=== PATIENT | female | born 1950 | race Caucasian/White ===

== ENCOUNTER → 2021-09-03 | Outpatient (CLI) | payer BC, OTHER ==
[~2021-09-03] MED LIST: ASPIRIN81 MG PO; CARAFATE1 GM PO; DULCOLAX5 MG PO; GABAPENTIN300 MG PO; HYDROCHLOROTHIA25 MG PO; LEVOTHYROXINE100 MCG PO; MONTELUKAST SOD10 MG PO; OMEPRAZOLE40 MG PO; TOPROL XL 25 MG25 MG PO
== END ==
LOC: EMI 09-02 10:45
DX: R41.9 Unspecified symptoms and signs involving cognitive functions and awareness (principal); G31.9 Degenerative disease of nervous system, unspecified; R93.0 Abnormal findings on diagnostic imaging of skull and head, not elsewhere classified; H70.92 Unspecified mastoiditis, left ear
CPT/HCPCS: 70551

== ENCOUNTER 2021-12-03 09:43 | Emergency (ER) | payer BC, OTHER, MEDICAID ==
[2021-12-03 11:08] LABS: RED BLOOD COUNT 5.13 M/UL (4.00-5.10); WHITE BLOOD COUNT 6.4 K/UL (4.5-11.0)
[2021-12-03 11:55] LABS: BUN/CREATININE RATIO 18 (0-10)
[2021-12-03] MEDS ORDERED: AMOX TR-K CLV1 EAC4 PO (14:32)
[2021-12-03] MEDS ORDERED: ZOFRAN ODT 4 MG4 MG PO (14:32)
== END 2021-12-03 14:45 | disposition home or self-care (01) ==
LOC: ER1 09:43
PROVIDERS: Family Medicine
DX: H92.01 Otalgia, right ear (principal); E87.6 Hypokalemia; J32.9 Chronic sinusitis, unspecified; R11.0 Nausea; I10 Essential (primary) hypertension; J44.9 Chronic obstructive pulmonary disease, unspecified
CPT/HCPCS: 70450; 71045; 80053; 80307; 81001; 82550; 82553; 84439; 84443; 84484; 85025; 86850; 86900; 86901; 87086; 93005; 99284; G0480